=== PATIENT | male | born 1990 | race Caucasian/White ===

== ENCOUNTER 2020-03-30 20:53 | Emergency (ER) | payer SELFPAY ==
[2020-03-30 20:55] VITALS: BP 139/99; PULSE 73; RESP 16; TEMP 36.9; O2SAT 99; BMI 27.8
--- NOTE | 2020-03-30 21:11 | XR_ITS ---
PROCEDURE: XR ANKLE RT MIN 3V CLINICAL INDICATION: stepped off ladder heard a pop. swelling present Pain and swelling COMPARISON: No exams were available for comparison FINDINGS: No fracture or dislocation. No lytic or blastic change. There is normal mineralization. The joint spaces are well-preserved. No significant degenerative/arthritic changes. No erosive changes evident. Other findings:There is soft tissue swelling laterally. IMPRESSION: Soft tissue swelling otherwise negative Dictated by: Tony Murray MD 03/31/2020 06:53 Electronically signed by Tony Murray MD in [place] 03/31/2020 06:53
--- NOTE | 2020-03-30 21:20 | HMH.EDGENADL ---
ED Disposition Clinical Impression: Right ankle sprain Disposition: Home, Self-Care Condition on Discharge: Good Instructions: DI for Ankle Sprain, How to Use Crutches, How To Perform RICE (Rest, Ice, Compress, Elevate) Additional Instructions: Sitting job only until released by orthopedics. Follow-up with orthopedics, Dr. Lainez, call tomorrow for appointment. Use crutches and Aircast until seen by orthopedics. Ice, elevation, Nahum wrap for swelling. Ibuprofen for pain. Referrals: PCP,No [Primary Care Provider] - Pardeep Lainez MD [Staff Physician] - - Critical Care Critical Care Time: No Attestation: On 03/30/20, the high probability of a clinically significant, sudden or life threatening deterioration of the following system(s) required my full and direct attention, intervention and personal management. The time I documented below is in addition to time spent performing reported procedures but includes the following listed in this critical care notation. Medical Decision Making - Jac Inquiry Pt receiving controlled substance: No Vital Signs: 03/30/20 20:55 Temperature 98.4 F Temperature Source Oral Pulse Rate [Left Radial] 73 Respiratory Rate 16 Blood Pressure [Right Arm] 139/99 H Blood Pressure Mean [Right Arm] 112 Blood Pressure Source [Right Arm] Automatic Cuff Blood Pressure Position [Right Arm] Sitting 02 Sat by Pulse Oximetry 99 Orders (Tests/Meds): ORDERS Category Date Time Status Ankle XR -Right minimum 3 Views [XR ankle RT min 3V] Exams 03/30/20 21:11 Taken Stat - Radiology Data #1 Image(s): Ankle Image Reviewed: Yes I reviewed the patient's radiology image lateral STS, no fx or disloc Medical Decision Narrative: The patient had ankle x-ray ordered at triage by nursing staff. On my examination he complained of pain all the way up to his knee when he bears weight. He had tenderness over his proximal fibula and I recommended a tibia/fibula x-ray. I explained to him that it is possible to break the proximal fibula by injuring her ankle and this is a serious injury. Despite this, he refuses an x-ray of the tibia and fibula. He says it feels just like a strained muscle in his proximal leg. General Adult HPI - General Chief complaint: Extremity Injury, Lower Stated complaint: AO fell from second step ladder injured R ankle Time Seen by Provider: 03/30/20 21:21 Mode of Arrival: Ambulatory Limitations: No Limitations Description of Symptoms (Recalled from ER Triage Doc. by RN): pt stated he rolled his right ankle stepping off a ladder. he sated he heard a pop when he stepped down. swelling located to the right ankle. pt took 800mg ibuprofen before arrival. - History of Present Illness HPI narrative: Coming down off of a ladder he injured his right ankle. Turned it and immediately felt a pop both medial and lateral and it immediately began swelling. Pain currently is 5/10, but he says when he puts weight on it the pain is severe. The pain radiates up to his knee. Denies numbness or weakness. He took ibuprofen prior to arrival. - Related Data Home Medications Medication Instructions Recorded Confirmed No Known Home Medications 12/13/17 12/13/17 Allergies Allergy/AdvReac Type Severity Reaction Status Date / Time No Known Allergies Allergy Verified 12/13/17 17:54 [facility] History - Hepatitis A Screen Drug use history?: No High risk sexual behaviors?: No History of sexually transmitted infection?: No Currently employed?: No Childcare worker?: No Do you have indoor plumbing?: Yes Do you have electricity?: Yes Attestation statement:: This patient has been screened for Hepatitis A risk factors. I have reviewed the patient's past medical history: Yes Medical History: Denies:: Cancer, Chronic Obstructive Pulmonary Disease (COPD), Diabetes Mellitus Type 1, Diabetes Mellitus Type 2, MRSA Amputation: No - Social History Smoking Status
[2020-03-30 21:41] VITALS: BP 139/84; PULSE 74; RESP 16; TEMP 36.9; O2SAT 100
== END 2020-03-30 21:43 | disposition home or self-care (01) ==
PROVIDERS: Emergency Provider Emergency Medicine
DX: S93.401A Sprain of unspecified ligament of right ankle, initial encounter (principal); W11.XXXA Fall on and from ladder, initial encounter; Y92.89 Other specified places as the place of occurrence of the external cause
CPT/HCPCS: 29515; 73610; 99283

== ENCOUNTER 2021-04-25 16:08 | Emergency (ER) | payer BC, SELFPAY ==
[2021-04-25 16:45] VITALS: PULSE 84; RESP 20; TEMP 36.6; O2SAT 100; BMI 27.9
--- NOTE | 2021-04-25 16:59 | HMH.EDUTC ---
[facility] [place] Clinical Impression: Exposure to COVID-19 virus Disposition: Home, Self-Care Condition on Discharge: Good Instructions: DI for COVID-19 (Suspected or Confirmed ), Preventing the Spread of Coronavirus Discharge Instructions Additional Instructions: Drink plenty of fluids. Take tylenol for pain or fever. Return if you begin to have difficulty breathing. Follow up with your regular doctor. GO TO THE ER FOR ANY WORSENING SYMPTOMS Quarantine until you know the results of your covid-19 test. If it is positive, the health department should call you and give you further instructions about your length of Quarantine and other things. Notify your school or workplace of your results and follow their instructions regarding return to work/school. Referrals: Himanshu Mccurdy MD [Primary Care Provider] - Forms: Work/School Release Time of Disposition: 17:00 Medical Decision Making - Medical Records Medical records reviewed: No: I reviewed the patient's medical records. - Jac Inquiry Pt receiving controlled substance: No Vital Signs: 04/25/21 16:45 04/25/21 17:05 Temperature 97.9 F 98.2 F Temperature Source Temporal Artery Scan Oral Pulse Rate 80 Pulse Rate [Right] 84 Respiratory Rate 20 16 Blood Pressure 113/72 02 Sat by Pulse Oximetry 100 Oxygen Delivery Method Room Air Room Air [facility] [place] - General Stated complaint: COVID TEST Time Seen by Provider: 04/25/21 16:59 Mode of Arrival: Ambulatory Source of Information: Patient Limitations: No Limitations Description of Symptoms (Recalled from Triage Doc. by RN): positive for covid. Pt starting to lose taste and smell HEENT Symptoms (Recalled from RN notes): No Resp Symptoms (Recalled from RN notes): No Skin Symptoms (Recalled from RN notes): No MS Symptoms (Recalled from RN notes): No Functional Status (Recalled from RN notes): na - History of Present Illness Provider Complaint: His currently has covid-19. He denies symptoms, but he needs to be checked for his work. - Related Data Home Medications Medication Instructions Recorded Confirmed No Known Home Medications 12/13/17 12/13/17 Allergies Allergy/AdvReac Type Severity Reaction Status Date / Time No Known Allergies Allergy Verified 12/13/17 17:54 - Worker's Comp Is this a Worker's Comp case?: No [facility] History - Hepatitis A Screen Drug use history?: No High risk sexual behaviors?: No History of sexually transmitted infection?: No Currently employed?: No Childcare worker?: No Do you have indoor plumbing?: Yes Do you have electricity?: Yes Attestation statement:: This patient has been screened for Hepatitis A risk factors. I have reviewed the patient's past medical history: Yes Medical History: Denies:: Cancer, Chronic Obstructive Pulmonary Disease (COPD), Diabetes Mellitus Type 1, Diabetes Mellitus Type 2, MRSA Amputation: No - Social History Smoking Status: Unknown if ever smoked Tobacco Type: smokeless tobacco Alcohol Intake: never Alcohol Intake Frequency:: 3 or more drinks per day Occupational Status: employed ROS Obtained: Yes All systems reviewed & no additional complaints - Constitutional Constitutional: Reports system reviewed and no additional complaints, except as docu - Eyes Eyes: Reports system reviewed and no additional complaints, except as docu - ENT Ears, Nose, Mouth, and Throat: Reports system reviewed and no additional complaints, except as docu - Cardiovascular Cardiovascular: Reports system reviewed and no additional complaints, except as docu - Respiratory Respiratory: Reports system reviewed and no additional complaints, except as docu - Gastrointestinal Gastrointestingal: Reports: system reviewed and no additional complaints, except as docu Physical Exam - General General appearance: alert, in no apparent distress - Head Head exam: atraumatic, normocephalic, normal inspection -
[2021-04-25 17:05] VITALS: BP 113/72; PULSE 80; RESP 16; TEMP 36.8; O2SAT 98
--- NOTE | 2021-04-25 21:05 | PC.NURSE ---
Attempted to call results. Not a working number. Attempted to contact brother and mother listed as contacts. No answer
--- NOTE | 2021-04-26 09:34 | PC.NURSE ---
attempted to call pt mother and brother who are listed at pt contacts, no answer.
--- NOTE | 2021-04-26 16:06 | PC.NURSE ---
relayed positive covid results to patent
== END 2021-04-25 17:06 | disposition home or self-care (01) ==
PROVIDERS: Emergency Provider Nurse Practitioner Family; PCP Family Medicine
DX: U07.1 COVID-19 (principal)
CPT/HCPCS: 99202; G0463; U0003

== ENCOUNTER 2024-03-24 16:14 | Emergency (ER) | payer SELFPAY ==
[2024-03-24 16:45] VITALS: BP 160/105; PULSE 63; RESP 19; TEMP 36.9; O2SAT 97; BMI 29.2
--- NOTE | 2024-03-24 16:53 | ED_ITS ---
Discharge Plan Disposition Patient Disposition: Home, Self-Care Condition: Good Prescriptions Prescriptions: New methylprednisolone 4 mg Tablets,Dose Pack 4 mg PO DIRECTED 6 Days Qty: 21 0RF Rx Instructions: Take 1 pack as directed for 6 days albuterol sulfate [Ventolin HFA] 90 mcg/actuation HFA aerosol inhaler 2 puff inhalation Q6H PRN (Reason: shortness of breath or wheezing) Qty: 6.7 0RF hcdcrqhijgbcvyt-jofbqnvyb-NB [Bromfed DM] 2-30-10 mg/5 mL Syrup 5 ml PO Q6H PRN (Reason: Cough) Qty: 240 0RF amoxicillin-pot clavulanate 875-125 mg Tablet 1 tab PO Q12H Qty: 20 0RF Referrals Follow up/Referrals: Himanshu Mccurdy MD [Primary Care Provider] - See instructions Activity Restrictions/Add. Instructions Additional Instructions/Restrictions: Drink plenty of fluids. Take tylenol or ibuprofen for pain or fever. Take the medications as directed. Follow up with your regular doctor. GO TO THE ER FOR ANY WORSENING SYMPTOMS Clinical Impressions Clinical Impression: Acute bronchitis Stand Alone Forms Stand Alone Forms: Work/School Release Instructions Patient Instructions: Acute Bronchitis, DI for Acute Bronchitis, Albuterol Oral Inhalation, Methylprednisolone, Azithromycin Discharge ED Provider: Matt Weathers [facility] General Stated complaint: Cough,Chest congestion Mode of Arrival: Ambulatory Source of Information: Patient Limitations: No Limitations Time Seen by Provider: 03/24/24 16:47 Description of Symptoms (Recalled from Triage Doc. by RN): PATIENT C/O COUGH, CONGESTION AND SOA X 3 DAYS HEENT Symptoms (Recalled from RN notes): Yes Resp Symptoms (Recalled from RN notes): Yes Skin Symptoms (Recalled from RN notes): No MS Symptoms (Recalled from RN notes): No Functional Status (Recalled from RN notes): WNL History of Present Illness Provider Complaint: He states that for the past 3 days he has had worsening chest tightness and productive cough. Related Data Previous Rx's Medication Instructions Recorded albuterol sulfate 90 mcg/actuation 2 puff inhalation Q6H PRN 03/24/24 aerosol inhaler (Ventolin HFA) shortness of breath or wheezing #6.7 grams amoxicillin 875 mg-potassium 1 tab PO Q12H #20 tabs 03/24/24 clavulanate 125 mg tablet baujgyajgqvedmc-wuqbydyptrcmbxr-LI 5 ml PO Q6H PRN Cough #240 mL 03/24/24 2 mg-30 mg-10 mg/5 mL oral syrup (Bromfed DM) methylprednisolone 4 mg tablets in 4 mg PO DIRECTED 6 days #21 tabs 03/24/24 a dose pack Allergies Allergy/AdvReac Type Severity Reaction Status Date / Time No Known Allergies Allergy Verified 12/13/17 17:54 Worker's Comp Is this a Worker's Comp case?: No PFSH PFS Disclaimer: The information contained in this section may have been updated after the patient was seen, as this information can be updated by other users. Medical History (Updated 03/24/24 @ 17:11 by Matt Weathers APRN) No significant past medical history Social History Smoking Status: Unknown if ever smoked alcohol intake: never current occupational status: employed Travel in the last 8 weeks: None ROS Obtained: Yes All systems reviewed & no additional complaints except as documented Constitutional Constitutional: Reports poor appetite Eyes Eyes: Reports system reviewed and no additional complaints, except as documented ENT Ears, Nose, Mouth, and Throat: Reports as per HPI Cardiovascular Cardiovascular: Reports system reviewed and no additional complaints, except as documented and Denies chest pain Respiratory Respiratory: Denies shortness of breath, Reports chest congestion, Reports cough, Denies stridor and Denies wheezing Gastrointestinal Gastrointestingal: Reports system reviewed and no additional complaints, except as documented; Denies abdominal pain, diarrhea or vomiting Musculoskeletal Musculoskeletal: Reports system reviewed and no additional complaints, except as documented and Denies arthralgias Integumentary/Breasts Skin/Breast: Reports system reviewed and no additional complaints, except as documented and Denies rash Neurologic Neurologic: Denies paresthesias Allergic/Immunologic Allergic/Immunologic: Denies wheezing Physical Exam General General appearance: alert and in no apparent distress Eye Eye exam: Present normal appearance, PERRL and EOMI ENT ENT exam: Present mucous membranes moist and normal external ear exam Expanded ENT Exam External ear exam: Present normal external inspection TM/Canal exam: Bilateral TM: erythema and bulging Nose exam: Absent sinus tenderness Nasal speculum exam: Bilateral: normal Mouth exam: Present normal external inspection; Absent drooling Teeth exam: Present normal inspection Throat exam: Present tonsillar erythema and tonsillomegaly Neck Neck exam: Present normal inspection, full ROM and trachea midline; Absent tenderness, lymphadenopathy or thyromegaly Chest Chest inspection: Present normal inspection and symmetric chest wall rise; Absent tenderness or rash Respiratory Respiratory exam: Present normal lung sounds bilaterally; Absent respiratory distress, wheezes, stridor or accessory muscle use Cardiovascular Cardiovascular exam: Present regular rate, normal rhythm and normal heart sounds Abdominal Exam Abdominal exam: Present soft; Absent distention, tenderness, guarding, rebound or rigidity Extremities Exam Extremities exam: Present normal inspection, full ROM and normal capillary refill; Absent tenderness or calf tenderness Back Exam Back exam: Present normal inspection and full ROM; Absent tenderness Neurological Exam Neurological exam: Present alert and oriented X3 Psychiatric Psychiatric exam: Present normal affect and normal mood Skin Skin exam: Present warm, dry, intact and normal color Lymphatic Lymphatic Findings: no adenopathy Medical Decision Making Medical Records Medical records reviewed: No I reviewed the patient's medical records. Jac Inquiry Pt receiving controlled substance: No Vital Signs: 03/24/24 16:45 Temperature 98.4 F Temperature Source Oral Pulse Rate [Left Brachial] 63 Respiratory Rate 19 Blood Pressure [Left Arm] 160/105 H Blood Pressure Mean [Left Arm] 123 Blood Pressure Source [Left Arm] Automatic Cuff Blood Pressure Position [Left Arm] Sitting 02 Sat by Pulse Oximetry 97 Oxygen Delivery Method Room Air Medical Decision Narrative: He refused a covid-19 test
[2024-03-24 17:12] VITALS: BP 160/105; PULSE 63; RESP 19; TEMP 36.9; O2SAT 97
== END 2024-03-24 17:14 | disposition home or self-care (01) ==
PROVIDERS: Emergency Provider Nurse Practitioner Family; PCP Family Medicine
DX: J20.9 Acute bronchitis, unspecified (principal); R05.9 Cough, unspecified; R09.89 Other specified symptoms and signs involving the circulatory and respiratory systems
CPT/HCPCS: 99212; 99214; G0463

== ENCOUNTER 2024-07-08 12:08 | Emergency (ER) | payer SELFPAY ==
[2024-07-08 12:10] VITALS: BP 181/117; PULSE 105; RESP 18; TEMP 36.7; O2SAT 100; BMI 28.7
--- NOTE | 2024-07-08 12:16 | ECG_ITS ---
APPROVED REPORT Exam: Resting ECG HR:101 bpm ECG Measurements Heart Rate 101 AXES AK 180 P 59 QRSd 90 QRS 34 QT 333 T 0 QTc 391 Conclusion SINUS TACHYCARDIA early repolarization no acute STEMI Electronically signed by : KRISTOPHER GUDINO, 07/08/2024 15:28:06
[2024-07-08 12:30] VITALS: BP 153/107; PULSE 83; O2SAT 100
--- NOTE | 2024-07-08 12:39 | XR_ITS ---
PROCEDURE INFORMATION: Exam: XR Chest Exam date and time: 07/08/2024 12:37 PM Age: 34 years old Clinical indication: Pain; Angina pectoris; Additional info: Chest pain TECHNIQUE: Imaging protocol: Radiologic exam of the chest. Views: 2 views. COMPARISON: CR [id number] XR chest portable 12/13/2017 5:43 PM FINDINGS: Lungs: Unremarkable. No consolidation. Pleural spaces: Unremarkable. No pleural effusion. No pneumothorax. Heart/Mediastinum: Unremarkable. No cardiomegaly. Bones/joints: Unremarkable. IMPRESSION: No acute findings.
[2024-07-08 13:00] VITALS: BP 151/102; PULSE 83; O2SAT 99
[2024-07-08 13:30] VITALS: BP 145/100; PULSE 74; O2SAT 97
[2024-07-08 13:31] LABS: Basophils # 0.1 K/mm3 (0-0.2); Eosinophils # 0.1 K/mm3 (0.0-0.4); Hematocrit 49.7 % (42.0-52.0); Hemoglobin 17.7 g/dL (14.1-18.0); Lymphocytes # 0.8 K/mm3 (0.7-4.5); Lymphocytes % 10.2 % (10-50); Mean Corpuscular HGB Conc 35.6 g/dL (31.8-35.4); Mean Corpuscular Hemoglobin 31.9 pg (27.0-31.2); Mean Corpuscular Volume 89.6 fl (80-94); Mean Platelet Volume 8.2 fl (7.4-10.4); Monocytes # 0.5 K/mm3 (0.1-1.0); Monocytes % 6.1 % (1.7-9.3); Neutrophils # 6.7 K/mm3 (1.8-7.8); Neutrophils % 81.6 % (37.0-80.0); Platelet Count 217 K/mm3 (142-424); Red Blood Count 5.55 M/mm3 (4.60-6.20); Red Cell Distribution Width 13.2 % (11.5-17.5); White Blood Count 8.2 K/mm3 (4.8-10.8)
[2024-07-08 13:49] LABS: Alanine Aminotransferase 60 U/L (12-78); Albumin Level 4.7 g/dl (3.5-5.0); Albumin/Globulin Ratio 1.6 (1.1-1.8); Alkaline Phosphatase 50 U/L (38-126); Anion Gap 13.4 mEq/L (5-15); Aspartate Amino Transferase 48 U/L (17-59); Bilirubin,Total 0.9 mg/dl (0.2-1.3); Blood Urea Nitrogen 9 mg/dl (9-20); Calcium 9.6 mg/dl (8.4-10.2); Carbon Dioxide 27 mmol/L (22.0-30.0); Chloride 103 mmol/L (98-107); Creatinine Clearance Estimated 150 mL/min (50-200); Estimated Glomerular Filt Rate 97 ml/min (>60); GFR (African American) 118 ML/MIN (>60); Glucose 85 mg/dl (74-100); Potassium 4.4 mmoL/L (3.5-5.1); Sodium 139 mmol/L (136-145); Total Protein,Serum 7.7 g/dl (6.3-8.2)
[2024-07-08 13:54] LABS: D-Dimer 0.35 ug/mL (0.0-0.5)
[2024-07-08 14:07] LABS: Troponin I < 0.01 ng/ml (0.00-0.034)
[2024-07-08 14:08] LABS: T4 (Thyroxine) 8.2 ug/dl (5.53-11.0)
--- NOTE | 2024-07-08 14:11 | [facility].EDGENADL ---
Discharge Plan Disposition Patient Disposition: Home, Self-Care Condition: Good Prescriptions Prescriptions: New hydroxyzine HCl 25 mg tablet 25 mg PO Q8H PRN (Reason: panic attack(s)) Qty: 20 0RF No Action methylprednisolone 4 mg Tablets,Dose Pack 4 mg PO DIRECTED 6 Days Qty: 21 0RF Rx Instructions: Take 1 pack as directed for 6 days albuterol sulfate [Ventolin HFA] 90 mcg/actuation HFA aerosol inhaler 2 puff inhalation Q6H PRN (Reason: shortness of breath or wheezing) Qty: 6.7 0RF xoczixxzfgzitog-yhayrsfxi-JO [Bromfed DM] 2-30-10 mg/5 mL Syrup 5 ml PO Q6H PRN (Reason: Cough) Qty: 240 0RF amoxicillin-pot clavulanate 875-125 mg Tablet 1 tab PO Q12H Qty: 20 0RF Referrals Follow up/Referrals: Provider,Referral, MD [Primary Care Provider] - See instructions Activity Restrictions/Add. Instructions Additional Instructions/Restrictions: You were evaluated in the emergency department today. Please picker and sorter load and unload your prescription and take as needed for panic attacks. Follow close with your primary care provider. Return to the emergency department for new or worsening symptoms. Clinical Impressions Clinical Impression: Pre-syncope, Anxiety, High blood pressure Stand Alone Forms Stand Alone Forms: Work/School Release Instructions Patient Instructions: DI for Syncope in Adults (Fainting), DI for Anxiety -- Adult Print Language Print Language: Romansh Discharge ED Provider: Judith Pedraza General Adult HPI General Chief complaint: Syncope Stated complaint: weakness, body tingling and tightness in chest Time Seen by Provider: 07/08/24 12:24 Mode of Arrival: Ambulatory Source of Information: Patient and Relative Limitations: No Limitations Description of Symptoms (Recalled from ER Triage Doc. by RN): c/o almost passing out x2 today. Pt states that he starts feeling hot and tingly all over and then things goes black. Pt states that he has been under stress History of Present Illness HPI narrative: This patient is a 34-year-old male who denies significant past medical history presenting to the emergency department for evaluation with concern for almost passing out twice today. Patient states that he has been under a lot of stress lately and is unsure if it is related to that. He notes that he started feeling really hot, flushed, and tingly all over and then everything goes black. He notes that whenever this happens, he checked his blood pressure and is through the roof. This is never happened to him before. He denies any headache, chest pain, shortness of breath, or other concerns. He states he is currently feeling better Related Data Previous Rx's ?Medication ?Instructions ?Recorded albuterol sulfate 90 mcg/actuation 2 puff inhalation Q6H PRN 03/24/24 aerosol inhaler (Ventolin HFA) shortness of breath or wheezing #6.7 grams amoxicillin 875 mg-potassium 1 tab PO Q12H #20 tabs 03/24/24 clavulanate 125 mg tablet aknseydjxdczocf-mqfneuiissvauly-IQ 5 ml PO Q6H PRN Cough #240 mL 03/24/24 2 mg-30 mg-10 mg/5 mL oral syrup (Bromfed DM) methylprednisolone 4 mg tablets in 4 mg PO DIRECTED 6 days #21 tabs 03/24/24 a dose pack hydroxyzine HCl 25 mg tablet 25 mg PO Q8H PRN panic attack(s) 07/08/24 #20 tabs Allergies Allergy/AdvReac Type Severity Reaction Status Date / Time No Known Allergies Allergy Verified 12/13/17 17:54 [facility] Disclaimer: The information contained in this section may have been updated after the patient was seen, as this information can be updated by other users. Medical History No significant past medical history Social History Smoking Status: Never smoker alcohol intake: never current occupational status: employed Travel in the last 8 weeks: None Other Medical History Have you received the Flu Vaccine for this season: No Have you received the Pneumonia Vaccine: No ROS Obtained: Yes All systems reviewed & no additional complaints except as documented Physical Exam General General appearance: alert, in no apparent distress and anxious Head Head exam: atraumatic and normocephalic Eye Eye exam: Present normal appearance, PERRL and EOMI ENT ENT exam: Present normal exam, normal oropharynx, mucous membranes moist and normal external ear exam Neck Neck exam: Present normal inspection, full ROM and trachea midline; Absent tenderness Chest Chest inspection: Present normal inspection and symmetric chest wall rise; Absent tenderness Respiratory Respiratory exam: Present normal lung sounds bilaterally; Absent respiratory distress, wheezes, stridor or accessory muscle use Cardiovascular Cardiovascular exam: Present regular rate and normal rhythm Abdominal Exam Abdominal exam: Present soft; Absent distention, tenderness or guarding Extremities Exam Extremities exam: Present normal inspection, full ROM and normal capillary refill; Absent tenderness or edema Back Exam Back exam: Present normal inspection and full ROM; Absent tenderness Neurological Exam Neurological exam: Present alert, oriented X3, CN II-XII intact and normal gait; Absent motor sensory deficit Psychiatric Psychiatric exam: Present anxious Skin Skin exam: Present warm and dry Medical Decision Making Medical Records Medical records reviewed: Yes I reviewed the patient's medical records. Screening: Per USPSTF and CDC recommendations, given the prevalence of disease in our region, it is our hospital?s policy to screen for HIV and viral Hepatitis for all patients aged 18 and over and those with ongoing risk factors. Jac Inquiry Pt receiving controlled substance: No Vital Signs: 07/08/24 12:10 07/08/24 12:30 07/08/24 13:00 Temperature 98.1 F Temperature Source Oral Pulse Rate 83 83 Pulse Rate [Left Radial] 105 H Respiratory Rate 18 Blood Pressure 153/107 H 151/102 H Blood Pressure [Right Arm] 181/117 H Blood Pressure Mean 122 113 Blood Pressure Mean [Right Arm] 138 Blood Pressure Source [Right Arm] Automatic Cuff Blood Pressure Position [Right Arm] Sitting 02 Sat by Pulse Oximetry 100 100 99 Oxygen Delivery Method Room Air Room Air 07/08/24 13:30 07/08/24 15:01 Temperature 98.0 F Temperature Source Pulse Rate 74 73 Pulse Rate [Left Radial] Respiratory Rate 13 Blood Pressure 145/100 H 140/100 H Blood Pressure [Right Arm] Blood Pressure Mean 119 Blood Pressure Mean [Right Arm] Blood Pressure Source [Right Arm] Blood Pressure Position [Right Arm] 02 Sat by Pulse Oximetry 97 Oxygen Delivery Method Lab Data Lab results reviewed: Yes I reviewed the patient's lab results. Lab Results 07/08/24 13:21: WBC 8.2, RBC 5.55, Hgb 17.7, Hct 49.7, MCV 89.6, MCH 31.9 H, MCHC 35.6 H, RDW 13.2, Plt Count 217, MPV 8.2, Neut % (Auto) 81.6 H, Lymph % (Auto) 10.2, [place] % (Auto) 6.1, Eos % (Auto) 1.0, Baso % (Auto) 1.0, Neut # (Auto) 6.7, Lymph # (Auto) 0.8, [place] # (Auto) 0.5, Eos # (Auto) 0.1, Baso # (Auto) 0.1, D-Dimer 0.35, Sodium 139, Potassium 4.4, Chloride 103, Carbon Dioxide 27, Anion Gap 13.4, BUN 9, Creatinine 0.90, Estimated Creat Clear 150, Estimated GFR 97, Est GFR ( Amer) 118, Glucose 85, Calcium 9.6, Total Bilirubin 0.9, AST 48, ALT 60, Alkaline Phosphatase 50, Troponin I < 0.01, Total Protein 7.7, Albumin 4.7, Globulin 3.0, Albumin/Globulin Ratio 1.6, TSH 0.66, Thyroxine (T4) 8.2 07/08/24 13:21 07/08/24 13:21 Orders (Tests/Meds): ORDERS Category Date Time Status CXR 2 view (NOT portable) [XR chest 2V] Stat Exams 07/08/24 12:39 Completed CBC w/Auto Diff [Complete Blood Count Auto Diff] Stat Lab 07/08/24 13:21 Completed CMP [Comprehensive Metabolic Panel] Stat Lab 07/08/24 13:21 Completed D-Dimer Stat Lab 07/08/24 13:21 Completed HIV (1&2) Antibody Rapid Stat Lab 07/08/24 13:21 Received Hep C Ab with Reflex to RNA Stat Lab 07/08/24 13:21 Received T4 (Thyroxine) Stat Lab 07/08/24 13:21 Completed TSH [Thyroid Stimulating Hormone] Stat Lab 07/08/24 13:21 Completed Trop I [Troponin I] Stat Lab 07/08/24 13:21 Completed ECG Data Tracing #1: I reviewed this ECG and interpreted as documented below: Sinus tachycardia with a ventricular of [address] changes concerning for ischemia. Some motion artifact degrades study. Normal intervals. Benign early repolarization ECG initial impression date: 07/08/24 ECG initial impression time: 12:17 Medical Decision Narrative: In summary, this patient is a 34-year-old male presenting to the Emergency Department for evaluation of 2 episodes of near syncope today. Differential diagnoses considered include but are not limited to panic attacks, anxiety, hypertensive urgency, hypertensive emergency, ACS, dysrhythmia, PE. Ruling out the most morbid conditions drove assessment. On exam, the patient is sitting upright in bed in no acute distress. He is anxious appearing and mildly hypertensive, but otherwise exam is reassuring without acute focal findings. EKG was obtained and does not demonstrate any acute ischemia or dysrhythmia. Workup included CBC, CMP, troponin, D-dimer, chest x-ray, TSH, T4, EKG. I independently interpreted x-ray prior to the radiologist read and noted acute focal consolidation concerning for pneumonia, mediastinal widening, or other concerns. Please see their read for final interpretation. Labs were obtained that demonstrated negative D-dimer, negative troponin, normal thyroid studies, no significant electrolyte derangements, normal CBC. On reassessment, patient continues to feel a lot better with normal vital signs and cardiac telemetry. Cardiopulmonary exam is reassuring. Ultimately, I feel we have excluded acute life-threatening pathology as a cause of the patient's symptoms and he is appropriate for discharge home. It is possible this is related to anxiety/panic given his recent stress. He was given prescription for hydroxyzine as well as instructions for close follow-up with primary care. He was discharged with very strict return precautions. Critical Care Critical Care Time Critical Care Time: No
[2024-07-08 14:22] LABS: Thyroid Stimulating Hormone 0.66 uIU/mL (0.465-4.68)
[2024-07-08 15:01] VITALS: BP 140/100; PULSE 73; RESP 13; TEMP 36.7
[2024-07-08 17:38] LABS: HIV (1&2) Antibody Rapid NONREACTIVE (NONREACTIVE)
[2024-07-09 09:39] LABS: HCV Ab Non Reactive (Non Reactive)
== END 2024-07-08 15:01 | disposition home or self-care (01) ==
PROVIDERS: Emergency Provider Emergency Medicine
DX: R55 Syncope and collapse (principal); R07.89 Other chest pain; I10 Essential (primary) hypertension; F41.9 Anxiety disorder, unspecified
CPT/HCPCS: 71046; 80053; 84436; 84443; 84484; 85025; 85378; 86803; 87389; 93005; 99284